=== PATIENT | female | born 1990 | race Caucasian/White ===

== ENCOUNTER → 2025-04-07 06:40 | Outpatient (REF) | payer BC, SELFPAY | LOC: RAD 06:40 | PROVIDERS: ATTENDING PHYSICIAN Urology; FAMILY PHYSICIAN Internal Medicine | DX: R31.0 Gross hematuria (principal); N39.0 Urinary tract infection, site not specified | CPT/HCPCS: 74178; Q9967 ==

== ENCOUNTER 2025-09-28 06:23 | Day surgery (SDC) | payer BC, SELFPAY ==
[2025-09-24 09:03] LABS: Hematocrit 41.8 % (37.0-47.0); Hemoglobin 14.9 g/dL (12.0-16.0); Mean Corp Hgb Conc. 35.6 g/dL (33.0-37.0); Mean Corpuscular Volume 95.2 fL (81.0-99.0); Platelet Count 248 10^3/uL (130-400); Red Cell Dist. Width 12.1 % (11.5-14.5)
[2025-09-24 10:44] LABS: Blood Urea Nitrogen 11 mg/dl (7-17); Calcium 9.8 mg/dl (8.4-10.2); Carbon Dioxide 27 mmol/L (22-30); Chloride 104 mmol/L (98-107); Glucose 96 mg/dl (70-99); Potassium 4.7 mmol/L (3.5-5.1); Sodium 138 mmol/L (135-145); eGFR > 60.00
[2025-09-24 13:45] VITALS: BMI 28.9
[2025-09-28 11:10] VITALS: BP 109/63
[2025-09-28 11:21] VITALS: BMI 28.9
[2025-09-28] MEDS: NORMOSOL-R/PLASMALYTE-A 1000 IV (11:30)
[2025-09-28 15:31] VITALS: BP 109/63; BP 134/77
[2025-09-28 15:36] VITALS: BP 109/63
[2025-09-28 15:45] VITALS: BP 119/68
[2025-09-28 16:00] VITALS: BP 117/69
[2025-09-28 16:15] VITALS: BP 116/71
== END 2025-09-28 16:45 | disposition home or self-care (01) ==
LOC: SDS 06:23
PROVIDERS: ATTENDING PHYSICIAN Obstetrics & Gynecology; FAMILY PHYSICIAN Internal Medicine
DX: N90.60 Unspecified hypertrophy of vulva (principal); N90.89 Other specified noninflammatory disorders of vulva and perineum; N94.10 Unspecified dyspareunia
CPT/HCPCS: 56620; 80048; 85027; 93005